=== PATIENT | female | born 1970 | race Two or more races ===

== ENCOUNTER 2018-03-09 19:23 | Inpatient (IN) | payer MEDICARE, MEDICAID ==
[~2018-03-09] VITALS: Ht 147.3 cm; Wt 42.6 kg
[2018-03-09] MEDS ORDERED: SODIUM CHLORIDE 0.9% 1,000 ML IV ONE (19:59)
[2018-03-09 21:22] LABS: Hemoglobin 10.9 g/dL (12.2-16.2)
[2018-03-09 21:25] LABS: Mean Corpuscular Hemoglobin 25.7 pg (28.0-32.0); Mean Corpuscular Hgb Conc. 32.1 g/dL (32.0-36.0); Mean Corpuscular Volume 79.9 fL (80.0-100.0); Platelet Count (auto) 160 10^3/uL (140-450); Red Blood Cells 4.25 10^6/uL (4.0-5.20)
[2018-03-09 21:29] LABS: Albumin 3.9 g/dL (3.4-5.0); BUN/Creatinine Ratio 24.6; Bilirubin, Total 0.2 mg/dL (0.2-1.0); Calcium 8.8 mg/dL (8.5-10.1); Potassium 3.7 mmol/L (3.5-5.1); Total Protein 9.3 g/dL (6.4-8.2)
[2018-03-09] MEDS ORDERED: HYDROmorphone HCL 2 MG/ML VL IV ONE (21:30)
[2018-03-09] MEDS ORDERED: ONDANSETRON HCL 4 MG/2 ML VIAL IV ONE (21:30)
[2018-03-09 21:41] LABS: INR 0.92 (0.9-1.15); Partial Thromboplastin Time 24.1 sec (23.78-33.04); Prothrombin Time 9.9 sec (9.27-12.13)
[2018-03-09 21:44] LABS: Red Cell Distribution Width 29.3 % (11.8-14.3); White Blood Cell 38.9 10^3/uL (4.4-10.8)
[2018-03-09 21:45] LABS: Basophils % (manual) 0 (0.0-2.0); Blast Cells 0; Eosinophils % (manual) 0 (0-7); Reactive Lymphocytes 0
[2018-03-09] MEDS ORDERED: cefTRIAXone 1GM/10ml IVPUSH 10 ML IV ONE (22:00)
[2018-03-09 22:22] LABS: Band Neutrophils % (manual) 17; Lymphocytes % (manual) 3 (10.0-50.0); Metamyelocytes % 6; Monocytes % (manual) 3 (0-12)
[2018-03-09 22:23] LABS: Myelocytes % 2; Promyelocytes % 1
[2018-03-09 22:45] LABS: Lactic Acid w/Reflex 3.6 mmol/L (0.4-2.0)
[2018-03-09] MEDS ORDERED: THIAMINE 100mg/ml INJ (200mg/2ml VIAL) IV ONE (23:15)
[2018-03-10] MEDS ORDERED: LORazepam 0.5 MG TAB PO PRN
[2018-03-10] MEDS ORDERED: HYDROcodone-ACET 5/325MG TAB PO PRN
[2018-03-10] MEDS ORDERED: MORPHINE SULFATE 4 MG/ML SYR/VIAL IV PRN
[2018-03-10] MEDS ORDERED: ACETAMINOPHEN 500 MG TAB PO PRN
[2018-03-10] MEDS ORDERED: SODIUM CHLORIDE 0.9% 1,000 ML IV ONE (00:15)
[2018-03-10] MEDS ORDERED: LORazepam 2MG/ML-1ML VIAL ONE (00:26)
[2018-03-10] MEDS ORDERED: HYDROmorphone HCL 2 MG/ML VL ONE (00:26)
[2018-03-10] MEDS ORDERED: LORazepam 2MG/ML-1ML VIAL IV ONE (00:30)
[2018-03-10] MEDS ORDERED: HYDROmorphone HCL 2 MG/ML VL IV ONE (00:30)
[2018-03-10 00:33] LABS: Amylase 73 U/L (25-115); Lipase 102 U/L (73-393)
[2018-03-10 01:05] VITALS: BP 140/91
[2018-03-10] MEDS ORDERED: CHLO25TA34 PO (02:53)
[2018-03-10] MEDS ORDERED: FLUO60TA PO (02:53)
[2018-03-10] MEDS ORDERED: CLIN1CAP4 PO (02:53)
[2018-03-10] MEDS ORDERED: PERCOT PO (02:53)
[2018-03-10] MEDS ORDERED: AMIT25TA9 PO (02:53)
[2018-03-10] MEDS ORDERED: TRAZ50TA2 PO (02:53)
[2018-03-10] MEDS ORDERED: DEX4T PO (02:53)
[2018-03-10 05:00] VITALS: BP 119/72
[2018-03-10] MEDS ORDERED: cefTRIAXone 1GM/10ml IVPUSH 10 ML IV SCH (09:00)
[2018-03-10 09:23] LABS: Urine Bacteria NONE SEEN /hpf (None Seen); Urine Blood Negative /uL (Negative); Urine Mucus FEW (None Seen); Urine Specific Gravity 1.022 (1.001-1.035); Urine WBC 7 /hpf (0 - 5)
[2018-03-10 09:33] LABS: Amphetamine Screen, Urine NEGATIVE (NEGATIVE); Barbiturate Scree,Urine NEGATIVE (NEGATIVE); Benzodiazephine Screen, Urine POSITIVE (NEGATIVE); Cannabinoid Screen, Urine NEGATIVE (NEGATIVE); Cocaine Screen, Urine NEGATIVE (NEGATIVE); Opiate Scree,Urine NEGATIVE (NEGATIVE); Phencyclidine Screen, Urine NEGATIVE (NEGATIVE)
[2018-03-10] MEDS ORDERED: MULTIPLE VITAMIN TAB PO SCH (10:00)
[2018-03-10] MEDS ORDERED: FOLIC ACID 1 MG TAB PO SCH (10:00)
[2018-03-10] MEDS ORDERED: THIAMINE HCL 100 MG TAB PO SCH (10:00)
== END 2018-03-10 10:10 | disposition left against medical advice (07) | DRG 871 ==
LOC: EDBD 19:23 → ER 19:26 → WEST WING 19:27
PROVIDERS: ADMIT Nurse Practitioner Family; ATTEND Internal Medicine
DX: A41.9 Sepsis, unspecified organism (principal); G92 Toxic encephalopathy; C56.9 Malignant neoplasm of unspecified ovary; D64.9 Anemia, unspecified; F10.129 Alcohol abuse with intoxication, unspecified; F41.9 Anxiety disorder, unspecified; Z53.21 Procedure and treatment not carried out due to patient leaving prior to being seen by health care provider; F32.9 Major depressive disorder, single episode, unspecified; G31.2 Degeneration of nervous system due to alcohol; Z85.43 Personal history of malignant neoplasm of ovary; Z90.710 Acquired absence of both cervix and uterus; Z92.21 Personal history of antineoplastic chemotherapy
CPT/HCPCS: 36415; 70450; 71045; 74176; 80053; 80307; 80320; 81001; 82150; 83605; 83690; 85007; 85027; 85610; 85730; 87040; 87081; 96361; 96374; 96375; J0696; J2405

== ENCOUNTER 2018-06-18 01:30 | Emergency (ER) | payer MEDICARE, MEDICAID ==
[~2018-06-18] VITALS: Ht 157.5 cm; Wt 59.0 kg
[~2018-06-18 01:30] MED LIST: AMIT25TA9 PO; CHLO25TA34 PO; CLIN1CAP4 PO; DEX4T PO; FLUO60TA PO; PERCOT PO; TRAZ50TA2 PO
[2018-06-18] MEDS ORDERED: SODIUM CHLORIDE 0.9% 1,000 ML IVB ONE (02:54)
[2018-06-18] MEDS ORDERED: ONDANSETRON HCL 4 MG/2 ML VIAL IV ONE (03:00)
[2018-06-18 03:44] LABS: Basophils # (auto) 0.1 uL; Basophils % (auto) 1.1 % (0.0-2.0); Eosinophils # (auto) 0 uL; Eosinophils % (auto) 0.1 % (0.0-7.0); Hematocrit 36.7 % (36.0-46.0); Hemoglobin 11.8 g/dL (12.2-16.2); Lymphocytes # (auto) 1.6 uL; Lymphocytes % (auto) 19.6 % (10.0-50.0); Mean Corpuscular Hemoglobin 26.6 pg (28.0-32.0); Monocytes # (auto) 0.4 uL; Monocytes % (auto) 5.3 % (0.0-12.0); Neutrophils % (auto) 73.9 % (37.0-80.0); Nucleated Red Blood Cells % 0.1 %; Platelet Count (auto) 385 10^3/uL (140-450); Red Blood Cells 4.42 10^6/uL (4.0-5.20); White Blood Cell 8.1 10^3/uL (4.4-10.8)
[2018-06-18 03:54] LABS: Albumin 3.5 g/dL (3.4-5.0); Calcium 8.1 mg/dL (8.5-10.1); Magnesium 1.8 mg/dL (1.6-2.6); Potassium 3.6 mmol/L (3.5-5.1)
[2018-06-18] MEDS ORDERED: MVI in SODIUM CHLORIDE 0.9% 1,010 ML ONE (03:57)
[2018-06-18 03:58] LABS: BUN/Creatinine Ratio 16.9; Bilirubin, Total 0.2 mg/dL (0.2-1.0); Total Protein 8.3 g/dL (6.4-8.2)
[2018-06-18] MEDS ORDERED: LORazepam 2MG/ML-1ML VIAL IV ONE (04:45)
[2018-06-18 06:37] LABS: Urine Pregnacy Test Negative (Negative)
[2018-06-18 06:42] LABS: Urine Bacteria NONE SEEN /hpf (None Seen); Urine Blood Negative /uL (Negative); Urine Specific Gravity 1.013 (1.001-1.035); Urine WBC 1 /hpf (0 - 5)
[2018-06-18 06:50] LABS: Amphetamine Screen, Urine NEGATIVE (NEGATIVE); Barbiturate Scree,Urine NEGATIVE (NEGATIVE); Benzodiazephine Screen, Urine NEGATIVE (NEGATIVE); Cannabinoid Screen, Urine NEGATIVE (NEGATIVE); Cocaine Screen, Urine NEGATIVE (NEGATIVE); Opiate Scree,Urine NEGATIVE (NEGATIVE); Phencyclidine Screen, Urine NEGATIVE (NEGATIVE)
[2018-06-18] MEDS ORDERED: chlordiazePOXIDE HCL 5 MG CAP PO ONE (07:45)
[2018-06-18] MEDS ORDERED: SODIUM CHLORIDE 0.9% 1,000 ML IV ONE ×2 (08:20)
[2018-06-18 12:00] VITALS: BP 112/76
[2018-06-18] MEDS ORDERED: MULTIPLE VITAMIN 10 ML, MAGNESIUM SULF SDV 50% 8 MEQ in SODIUM CHLORIDE 0.9% 1,000 ML IV SCH (12:00)
== END 2018-06-18 12:44 | disposition home or self-care (01) ==
LOC: ER 01:30 → EDBD 01:30 → ER 12:44
DX: S09.90XA Unspecified injury of head, initial encounter (principal); F10.121 Alcohol abuse with intoxication delirium; Y90.0 Blood alcohol level of less than 20 mg/100 ml; Z90.710 Acquired absence of both cervix and uterus; Z85.43 Personal history of malignant neoplasm of ovary; W06.XXXA Fall from bed, initial encounter; Y93.89 Activity, other specified; Y99.8 Other external cause status; Y92.89 Other specified places as the place of occurrence of the external cause
CPT/HCPCS: 36415; 70450; 80053; 80307; 80320; 81001; 81025; 83735; 84702; 85025; 93005; 94761; 96365; 96375; 99284; J2060; J2405; J3411; J3475

== ENCOUNTER 2020-12-05 18:06 | Emergency (ER) | payer MEDICARE, MEDICAID ==
[~2020-12-05] VITALS: Ht 162.6 cm; Wt 68.0 kg
[~2020-12-05 18:06] MED LIST changes: +AMIT25TA12 PO; -AMIT25TA9 PO; +CHLO25TA PO; -CHLO25TA34 PO; -CLIN1CAP4 PO; +CLIN300C8 PO
[2020-12-05 20:34] LABS: Basophils # (auto) 0.1 10 ^3/uL (0-0.2); Eosinophils # (auto) 0.2 10 ^3/uL (0-0.8); Eosinophils % (auto) 3.3 % (0.0-7.0); Hematocrit 37.9 % (36.0-46.0); Lymphocytes # (auto) 0.9 10 ^3/uL (0.4-5.4); Lymphocytes % (auto) 14.8 % (10.0-50.0); Mean Corpuscular Hemoglobin 29.3 pg (28.0-32.0); Mean Corpuscular Hgb Conc. 34.3 g/dL (32.0-36.0); Mean Corpuscular Volume 85.4 fL (80.0-100.0); Monocytes # (auto) 0.4 10 ^3/uL (0-1.3); Monocytes % (auto) 7.1 % (0.0-12.0); Neutrophils # (auto) 4.6 10 ^3/uL (1.6-8.6); Neutrophils % (auto) 73.8 % (37.0-80.0); Nucleated Red Blood Cells % 0.1 %; Red Blood Cells 4.44 10^6/uL (4.0-5.20); Red Cell Distribution Width 15.6 % (11.8-14.3); White Blood Cell 6.2 10^3/uL (4.4-10.8)
[2020-12-05 20:53] LABS: Calcium 8.1 mg/dL (8.5-10.1); Potassium 3.4 mmol/L (3.5-5.1)
[2020-12-05 20:56] LABS: BUN/Creatinine Ratio 12.5; Magnesium 1.5 mg/dL (1.6-2.6)
[2020-12-05 20:59] LABS: Bilirubin, Total 0.2 mg/dL (0.2-1.0); Total Protein 8.2 g/dL (6.4-8.2)
[2020-12-05 21:09] LABS: Salicylate 3.9 mg/dL (2.8-20.0)
[2020-12-05 21:11] LABS: Acetaminophen < 2.0 ug/mL (10-30)
[2020-12-05 21:57] LABS: Urine WBC None Seen /hpf (0 - 5)
[2020-12-05 22:21] LABS: Urine Bacteria NONE SEEN /hpf (None Seen); Urine Blood 1+ /uL (Negative); Urine Specific Gravity 1.006 (1.001-1.035)
[2020-12-05 22:30] LABS: Amphetamine Screen, Urine NEGATIVE (NEGATIVE); Barbiturate Scree,Urine NEGATIVE (NEGATIVE); Benzodiazephine Screen, Urine NEGATIVE (NEGATIVE); Cannabinoid Screen, Urine NEGATIVE (NEGATIVE); Cocaine Screen, Urine NEGATIVE (NEGATIVE); Opiate Scree,Urine NEGATIVE (NEGATIVE); Phencyclidine Screen, Urine NEGATIVE (NEGATIVE)
[2020-12-06 01:56] LABS: BUN/Creatinine Ratio 10.6; Calcium 8.1 mg/dL (8.5-10.1); Potassium 3.6 mmol/L (3.5-5.1)
[2020-12-06 01:58] LABS: Bilirubin, Total 0.2 mg/dL (0.2-1.0); Total Protein 8.4 g/dL (6.4-8.2)
[2020-12-06 08:10] LABS: Albumin 3.1 g/dL (3.4-5.0); Calcium 8.2 mg/dL (8.5-10.1); Potassium 3.7 mmol/L (3.5-5.1)
[2020-12-06 08:14] LABS: BUN/Creatinine Ratio 12.5; Bilirubin, Total 0.6 mg/dL (0.2-1.0)
[2020-12-06] MEDS ORDERED: THIAMINE 100mg/ml INJ (200mg/2ml VIAL) IV ONE (09:00)
[2020-12-06] MEDS ORDERED: SODIUM CHLORIDE 0.9% 3,000 ML IV ONE (09:00)
[2020-12-06] MEDS ORDERED: LORazepam 2MG/ML-1ML VIAL IV ONE ×2 (09:00→13:30)
[2020-12-06] MEDS ORDERED: ACETYLCYSTEINE ORAL for CIN 20%(200MG/ML) 4ML PO ONE (09:00)
[2020-12-06] MEDS ORDERED: LORazepam 0.5 MG TAB PO ONE (20:30)
[2020-12-06] MEDS ORDERED: traZODone HCL 50 MG TAB PO ONE (20:30)
[2020-12-07] MEDS ORDERED: LORazepam 2MG/ML-1ML VIAL IV ONE (07:30)
[2020-12-07 10:29] LABS: Basophils # (auto) 0 10 ^3/uL (0-0.2); Basophils % (auto) 0.9 % (0.0-2.0); Eosinophils # (auto) 0.3 10 ^3/uL (0-0.8); Hematocrit 37.6 % (36.0-46.0); Hemoglobin 12.9 g/dL (12.2-16.2); Lymphocytes # (auto) 0.8 10 ^3/uL (0.4-5.4); Mean Corpuscular Hemoglobin 29.4 pg (28.0-32.0); Mean Corpuscular Hgb Conc. 34.3 g/dL (32.0-36.0); Mean Corpuscular Volume 85.9 fL (80.0-100.0); Monocytes # (auto) 0.4 10 ^3/uL (0-1.3); Monocytes % (auto) 8.8 % (0.0-12.0); Neutrophils % (auto) 67.3 % (37.0-80.0); Red Blood Cells 4.37 10^6/uL (4.0-5.20); Red Cell Distribution Width 15.7 % (11.8-14.3); White Blood Cell 4.5 10^3/uL (4.4-10.8)
[2020-12-07 10:46] LABS: Calcium 8.4 mg/dL (8.5-10.1); Potassium 3.5 mmol/L (3.5-5.1)
[2020-12-07 10:49] LABS: BUN/Creatinine Ratio 14.3; Bilirubin, Total 0.5 mg/dL (0.2-1.0); Total Protein 7.8 g/dL (6.4-8.2)
[2020-12-07] MEDS ORDERED: LORazepam 0.5 MG TAB PO ONE (11:30)
[2020-12-07] MEDS: FLUoxetine HCL 20 MG CAP PO SCH ×2 (12:00→21:35)
[2020-12-07] MEDS: traZODone HCL 50 MG TAB PO SCH (21:35)
[2020-12-07] MEDS: LORazepam 0.5 MG TAB PO PRN (21:36)
[2020-12-07] MEDS ORDERED: HALOPERIDOL LACTATE 5 MG/ML INJ VIAL IM ONE (23:30)
[2020-12-08] MEDS: FLUoxetine HCL 20 MG CAP PO SCH (09:48)
[2020-12-08] MEDS: LORazepam 0.5 MG TAB PO PRN ×2 (09:48→20:28)
[2020-12-08] MEDS ORDERED: FLUoxetine HCL 20 MG CAP PO ONE (10:00)
[2020-12-08] MEDS ORDERED: LORazepam 0.5 MG TAB PO ONE (11:30)
[2020-12-08 11:42] LABS: BUN/Creatinine Ratio 17.6; Calcium 8.4 mg/dL (8.5-10.1)
[2020-12-08] MEDS ORDERED: HALOPERIDOL LACTATE 5 MG/ML INJ VIAL IM ONE (20:15)
[2020-12-08] MEDS: traZODone HCL 50 MG TAB PO SCH (20:28)
[2020-12-08] MEDS ORDERED: traZODone HCL 50 MG TAB PO ONE (22:00)
[2020-12-08] MEDS: AMITRIPTYLINE HCL 25 MG TAB PO SCH (23:38)
[2020-12-09] MEDS: FLUoxetine HCL 20 MG CAP PO SCH (10:01)
[2020-12-09] MEDS: LORazepam 0.5 MG TAB PO PRN ×2 (10:02→22:26)
[2020-12-09] MEDS ORDERED: MORPHINE SULFATE INJECTION 2 MG/ML SYRG IV ONE (13:00)
[2020-12-09] MEDS ORDERED: METOCLOPRAMIDE HCL 5MG/ml INJ 2ml VIAL IV ONE (13:00)
[2020-12-09] MEDS ORDERED: MORPHINE SULFATE 4 MG/ML SYR/VIAL IV ONE (16:15)
[2020-12-09] MEDS ORDERED: ONDANSETRON HCL 4 MG/2 ML VIAL IV ONE (16:15)
[2020-12-09] MEDS ORDERED: AZITHROMYCIN 500MG/ 250ML 250 ML IV ONE (16:15)
[2020-12-09] MEDS: traZODone HCL 50 MG TAB PO SCH (22:25)
[2020-12-09] MEDS: AMITRIPTYLINE HCL 25 MG TAB PO SCH (22:25)
[2020-12-10 00:13] VITALS: BP 144/83
[2020-12-10] MEDS ORDERED: LORazepam 2MG/ML-1ML VIAL ONE (02:29)
[2020-12-10] MEDS ORDERED: LORazepam 2MG/ML-1ML VIAL IM ONE (02:30)
[2020-12-10] MEDS ORDERED: HALOPERIDOL LACTATE 5 MG/ML INJ VIAL IM ONE (06:00)
== END 2020-12-10 08:16 | disposition home or self-care (01) ==
LOC: EDBD 18:06 → ER 18:10
DX: T40.2X1A Poisoning by other opioids, accidental (unintentional), initial encounter (principal); T49.6X1A Poisoning by otorhinolaryngological drugs and preparations, accidental (unintentional), initial encounter; F17.210 Nicotine dependence, cigarettes, uncomplicated; Z79.899 Other long term (current) drug therapy; Z88.0 Allergy status to penicillin; Z20.822 Contact with and (suspected) exposure to COVID-19; Y92.89 Other specified places as the place of occurrence of the external cause
CPT/HCPCS: 36415; 80048; 80053; 80307; 80320; 80329; 81001; 83735; 85025; 85049; 87426; 93005; 96361; 96374; 96375; 96376; 99285; J1630; J2060; J7030; J2405